=== PATIENT | female | born 1945 | race Caucasian/White ===

== ENCOUNTER 2023-09-12 10:31 | Emergency (ER) | payer MEDICARE, SELFPAY ==
[2023-09-12 10:43] VITALS: BP 173/75; PULSE 84; O2SAT 97
[2023-09-12 10:46] VITALS: BP 173/75; PULSE 84; RESP 16; TEMP 36.9; O2SAT 98; BMI 30.1
[2023-09-12 11:00] VITALS: BP 145/67; PULSE 85; O2SAT 95
[2023-09-12] MEDS: SODIUM CHLORIDE 0.9% 1,000 ML 1000 ML IV (11:04)
[2023-09-12] MEDS: ONDANSETRON 4 MG/2 ML INJ IV (11:10)
[2023-09-12 11:16] LABS: Alanine Aminotransferase 20 IU/L (<35); Albumin 4.2 g/dL (3.5-5.0); Albumin Globulin Ratio 1.3 (1.0-2.8); Alkaline Phosphatase 132 U/L (38-126); Aspartate Aminotransferase 28 IU/L (14-36); BUN Creatinine Ratio 19.2 (6-22); Bilirubin Total 0.4 mg/dL (0.2-1.3); Blood Urea Nitrogen 14 mg/dL (7-17); Calcium 9.8 mg/dL (8.4-10.2); Carbon Dioxide 28 mmol/L (22-32); Chloride 103 mmol/L (98-107); Estimated Glomerular Filt Rate > 60 mL/min (>60); Globulin 3.3 g/dL (1.7-4.1); Glucose 104 mg/dL (80-110); HEMOLYSIS < 15 (0-50); Lipase 120 U/L (23-300); Sodium 138 mmol/L (137-145); Total Protein 7.5 g/dL (6.3-8.2)
[2023-09-12 11:21] LABS: Add Manual Diff / Slide Review NO; Basophils Absolute Auto 0 /uL (0-100); Basophils Percent Auto 0.3 % (0-2); Eosinophils Absolute Auto 0 /uL (0-450); Eosinophils Percent Auto 0.1 % (2-4); Hematocrit 36.3 % (36-46); Hemoglobin 12.1 g/dL (12.0-16.0); Lymphocytes Absolute Auto 800 /uL (1100-4500); Lymphocytes Percent Auto 9.5 % (25-40); Mean Corpuscular HGB Conc 33.3 % (30-36); Mean Corpuscular Hemoglobin 29.7 PG (26-34); Mean Corpuscular Volume 89.3 fL (80-100); Monocytes Absolute Auto 300 /uL (0-900); Monocytes Percent Auto 3.4 % (3-14); Neutrophils Absolute Auto 6900 /uL (1500-7000); Neutrophils Percent Auto 86.7 % (50-75); Platelet Count 204 X10^3/uL (150-400); Red Blood Cell Count 4.07 X10^6/uL (4.0-5.2); Red Cell Distribution Width 18.1 % (11.6-14.8)
[2023-09-12 11:30] VITALS: BP 159/72; PULSE 84; O2SAT 99
--- NOTE | 2023-09-12 11:37 | ED_ITS ---
HPI - Nausea/Vomiting/Diarrhea General Chief complaint: Nausea/Vomiting/Diarrhea Stated complaint: vomitting all night/get iv fluids anti nausea meds Time Seen by Provider: 09/12/23 10:48 Source: patient Mode of arrival: Ambulatory History of Present Illness HPI Narrative: 78-year-old female with a history of bipolar disorder and rheumatoid arthritis presenting with 12 hours of nausea vomiting and diarrhea. She is vomited numerous times, has had only a little bit of diarrhea without blood in it. She has not having abdominal pain. She has not having fevers. She has been around a grandchild who had respiratory symptoms but nobody recently with GI symptoms. She has not having urinary symptoms. He has not taking immunosuppressive medications no history of inflammatory bowel disease. No recent antibiotic treatment or travel. Related Data Previous Rx's Medication Instructions Recorded ondansetron HCl 4 mg tablet 4 mg PO Q6H PRN nausea and 09/12/23 vomiting #10 tabs Allergies Allergy/AdvReac Type Severity Reaction Status Date / Time wheat Allergy Verified 09/12/23 10:51 lactose AdvReac Verified 09/12/23 10:51 Patient History Social History Smoking Status: Former smoker Smoking Status: Former smoker Substance Use Type: does not use Exam Narrative Exam Narrative: Alert oriented appears to be in no distress oral mucosa is moist Initial Vital Signs Initial Vital Signs: Vital Signs Pulse Rate 84 09/12/23 10:43 Blood Pressure 173/75 H 09/12/23 10:43 Pulse Oximetry 97 09/12/23 10:43 Neck Neck: supple Resp Effort & Inspection: normal respiratory effort Auscultation: clear to auscultation bilaterally Cardio Rate: regular rate Rhythm: regular rhythm Heart Sounds: S1 normal, S2 normal and no murmurs GI Palpation: soft, No hernia and No tender Auscultation: normal bowel sounds Other: No CVAT Skin General: dry skin and warm Neuro General: patient alert and patient oriented x3 Psych Appearance: grossly normal and well kempt Speech and Movement: speech and movement normal Course Orders Ordered: ED Orders 09/12/23 10:55 CBC Auto Diff [Complete Blood Count AUTO DIFF] Stat CMP [Comprehensive Metabolic Panel] Stat Lipase Stat Discontinued Medications Acetaminophen (Acetaminophen 325 Mg Tablet) 975 mg PO NOW ONE Stop: 09/12/23 11:38 Last Admin: 09/12/23 11:45 Dose: 975 mg Documented By: RALPH Sodium Chloride (Normal Saline 0.9%) 1,000 mls @ 1,000 mls/hr IV BOLUS ONE Stop: 09/12/23 11:51 Last Infusion: 09/12/23 12:13 Dose: Infused Documented By: Admin: 09/12/23 11:04 Dose: 1,000 mls/hr Documented By: RALPH Ondansetron HCl (Ondansetron 4 Mg/2 Ml Inj) 4 mg IV NOW ONE Stop: 09/12/23 11:04 Last Admin: 09/12/23 11:10 Dose: 4 mg Documented By: RALPH Vital Signs Vital signs: Vital Signs - 8 hr 09/12/23 10:43 09/12/23 10:43 09/12/23 10:46 Temperature 98.4 F Pulse Rate 84 84 Respiratory Rate 16 Blood Pressure 173/75 H 173/75 H Pulse Oximetry 97 98 Oxygen Delivery Method Room Air 09/12/23 11:00 09/12/23 11:00 09/12/23 11:30 Temperature Pulse Rate 85 84 Respiratory Rate Blood Pressure 145/67 H Pulse Oximetry 95 99 Oxygen Delivery Method 09/12/23 11:30 09/12/23 12:00 09/12/23 12:01 Temperature Pulse Rate 83 Respiratory Rate Blood Pressure 159/72 H 151/75 H Pulse Oximetry 97 Oxygen Delivery Method 09/12/23 12:01 Temperature Pulse Rate 86 Respiratory Rate Blood Pressure Pulse Oximetry 97 Oxygen Delivery Method MDM - Nausea/Vomiting/Diarrhea Lab Data 09/12/23 10:55 09/12/23 10:55 Labs: Lab Results 09/12/23 Range/Units 10:55 WBC 8.0 (4.5-11.0) X10^3/uL RBC 4.07 (4.0-5.2) X10^6/uL Hgb 12.1 (12.0-16.0) g/dL Hct 36.3 (36-46) % MCV 89.3 (80-100) fL MCH 29.7 (26-34) PG MCHC 33.3 (30-36) % RDW 18.1 H (11.6-14.8) % Plt Count 204 (150-400) X10^3/uL Neut % (Auto) 86.7 H (50-75) % Lymph % (Auto) 9.5 L (25-40) % [place] % (Auto) 3.4 (3-14) % Eos % (Auto) 0.1 L (2-4) % Baso % (Auto) 0.3 (0-2) % Neut # (Auto) 6900 (3340-4487) /uL Lymph # (Auto) 800 L (3203-0821) /uL [place] # (Auto) 300 (0-900) /uL Eos # (Auto) 0 (0-450) /uL Baso # (Auto) 0 (0-100) /uL Sodium 138 (137-145) mmol/L Potassium 4.0 (3.4-5.1) mmol/L Chloride 103 (98-107) mmol/L Carbon Dioxide 28 (22-32) mmol/L BUN 14 (7-17) mg/dL Creatinine 0.73 (0.52-1.04) mg/dL Estimated GFR > 60 (>60) mL/min BUN/Creatinine Ratio 19.2 (6-22) Glucose 104 (80-110) mg/dL Calcium 9.8 (8.4-10.2) mg/dL Total Bilirubin 0.4 (0.2-1.3) mg/dL AST 28 (14-36) IU/L ALT 20 (<35) IU/L Alkaline Phosphatase 132 H (38-126) U/L Total Protein 7.5 (6.3-8.2) g/dL Albumin 4.2 (3.5-5.0) g/dL Globulin 3.3 (1.7-4.1) g/dL Albumin/Globulin Ratio 1.3 (1.0-2.8) Lipase 120 (23-300) U/L [facility] Narrative Medical decision making narrative: 78-year-old female presenting with acute onset nausea vomiting and diarrhea. It has not associated with fevers or abdominal pain. Differential would include gastroenteritis, toxicity, infectious diarrhea with a bacterial cause or possibly ischemic bowel. Overall the patient is nontoxic labs are reassuring, she is improved after receiving ondansetron and some fluids. I think it is safe for her to go home at this point I do not think that additional testing is required. I did provide a prescription for ondansetron to use as needed for nausea and vomiting and discussed indications for return Discharge Plan Departure Patient Disposition: Home Clinical Impression: Vomiting and diarrhea Instructions: DI for Dehydration -- Adult, DI for Vomiting -- Adult Activity Restrictions/Additional Instructions: Emergency department workup today is reassuring. I think it is safe for you to go home, I have provided a prescription for ondansetron to use as needed for nausea and vomiting. Get adequate fluids. Starting with a clear liquid diet is a good idea until your sure you are improving. It is possible you have some additional diarrhea. I would not be alarmed by this. If you are having increasing abdominal pain, bloody diarrhea, uncontrolled vomiting return to the emergency department. Follow up soon with your primary care provider if symptoms have not resolved. Prescriptions: New ondansetron HCl 4 mg tablet 4 mg PO Q6H PRN (Reason: nausea and vomiting) Qty: 10 0RF Stand Alone Forms: Patient Portal/API
[2023-09-12] MEDS: ACETAMINOPHEN 325 MG TABLET 975 MG PO (11:45)
[2023-09-12 12:00] VITALS: PULSE 83; O2SAT 97
[2023-09-12 12:01] VITALS: BP 151/75; PULSE 86; O2SAT 97
== END 2023-09-12 12:53 | disposition home or self-care (01) ==
PROVIDERS: Emergency Provider Emergency Medicine
DX: R11.2 Nausea with vomiting, unspecified (principal); R19.7 Diarrhea, unspecified
CPT/HCPCS: 36415; 80053; 83690; 85025; 96361; 96374; 99284; J2405